=== PATIENT | female | born 1950 | race Caucasian/White ===

== ENCOUNTER 2017-02-11 17:50 | Emergency (ER) | payer OTHER ==
[~2017-02-11] VITALS: Ht 165.1 cm; Wt 73.9 kg
[~2017-02-11 17:50] MED LIST: DOXE50CA4 PO; GABA-531 PO; LABE200T28 PO; PRO40 PO; ROPI3TAB PO; TEMA30CA5 PO
[2017-02-11 17:55] VITALS: BP_SYST 155
[2017-02-11 19:08] LABS: BASOPHILS # (AUTO) 0.1 K/uL (0.0-0.2); BASOPHILS % (AUTO) 1.6 % (0.0-2.0); EOSINOPHILS # (AUTO) 0.2 K/uL (0.0-0.4); EOSINOPHILS % (AUTO) 2.7 % (0.0-4.0); HEMATOCRIT 37.2 % (36-48); HEMOGLOBIN 12.4 g/dL (12.0-16.0); LYMPHOCYTES # (AUTO) 2.5 K/uL (1.0-5.5); LYMPHOCYTES % (AUTO) 29.8 % (20.5-51.5); MEAN CORPUSCULAR HEMOGLOBIN 29 pg (27-31); MEAN CORPUSCULAR HGB CONC 34 % (32-36); MEAN CORPUSCULAR VOLUME 86 fL (79.0-98.0); MONOCYTES # (AUTO) 0.7 K/uL (0.0-1.0); NEUTROPHILS % (AUTO) 57.9 % (40.0-70.0); PLATELET COUNT (AUTO) 245 K/uL (130-430); RED BLOOD CELL COUNT(AUTO) 4.34 MIL/uL (4.2-6.2); RED CELL DISTRIBUTION WIDTH 13.5 % (9.0-15.0); WHITE BLOOD COUNT (AUTO) 8.5 K/uL (4.8-10.8)
[2017-02-11 19:11] LABS: CALCIUM 8.8 mg/dL (8.4-11.0); CREATININE 1.08 mg/dL (0.55-1.30); POTASSIUM 4.3 mmol/L (3.5-5.1)
[2017-02-11 19:16] LABS: PROTHROMBIN TIME 11.1 SECS (9.5-12.5)
[2017-02-11 20:00] VITALS: BP_SYST 163
[2017-02-11] MEDS ORDERED: NORMAL SALINE 5 ML DISP.SYRIN IVF SCH (22:00)
== END 2017-02-11 20:00 | disposition short-term general hospital (02) ==
LOC: SED 17:50
DX: R04.0 Epistaxis (principal); K74.60 Unspecified cirrhosis of liver; Z88.6 Allergy status to analgesic agent; Z87.442 Personal history of urinary calculi; Z86.19 Personal history of other infectious and parasitic diseases
CPT/HCPCS: 36415; 71010; 80048; 85025; 85610-TC; 85730-TC; 86870; 86886; 86900; 86901; 99285

== ENCOUNTER 2019-12-11 16:06 | Inpatient (IN) | payer OTHER ==
[~2019-12-11] VITALS: Ht 166.4 cm; Wt 81.6 kg
[~2019-12-11 16:06] MED LIST changes: +DOXE25CA3 PO; +DOXY100C PO; +HYDR-1189 PO; +IPRA4AER INH; +METH4TAB3 PO; +MONT10TA22 PO; +NIFE-2 PO; +PHEDM120 PO; +RANI-362 PO; +ROPI3TAB4 PO
[2019-12-11 16:15] VITALS: BP_SYST 140
--- NOTE | 2019-12-11 16:15 | NUR ---
Placed in room 2 . Placed on threat monitoring analyst, blood pressure machine and pulse oximeter. To gown for exam. Side rails up. Report given to ALIYAH Perez.
--- NOTE | 2019-12-11 16:17 | NUR ---
Patient arrived in the ED c/o shortness of breath and urinary retention. Patient was seen at [facility] 12/06/19 for the same symptom. Denied any chest pain. Denied any fevers, nausea, vomiting, or chills. Patient is alert and oriented x4, respirations even and unlabored, speaking in full sentences, ambulating with a steady gait. VSS, pain level 8/10. Informed of wait time. Instructed to notify ED staff for any changes in condition or worsening of symptoms. Patient verbalized understanding.
--- NOTE | 2019-12-11 16:34 | NUR ---
ECG done at bedside as ordered by Dr. Maria. Patient tolerated the procedure well. Report given to
--- NOTE | 2019-12-11 16:42 | NUR ---
ER Dr. Maria at bedside examining patient.
--- NOTE | 2019-12-11 16:52 | NUR ---
RT at bedside administering nebulizer treatment as ordered by Dr. Maria. Patient tolerated the medication well.
--- NOTE | 2019-12-11 16:55 | NUR ---
# 22 gauge angiocath placed to right chest. Use of asceptic technique. Opsite placed over site. Blood return noted. Blood for lab drawn from site. Flushed with 10 cc of normal saline. No evidence of infiltration noted. Patient tolerated well.
[2019-12-11] MEDS ORDERED: fentaNYL CITRATE/PF 100 MCG/2 ML AMP IVP ONE (17:00)
--- NOTE | 2019-12-11 17:00 | NUR ---
Administered Fentanyl IVP as ordered by Dr. Maria. Patient tolerated the medication well. See eMAR for details.
--- NOTE | 2019-12-11 17:03 | NUR ---
X-ray done at bedside as ordered by Dr. Maria. Patient tolerated the procedure well.
[2019-12-11] MEDS ORDERED: POTA-88 PO (17:06)
[2019-12-11] MEDS ORDERED: MACI10TA PO (17:06)
[2019-12-11] MEDS ORDERED: FAMO-132 PO (17:06)
[2019-12-11] MEDS ORDERED: BENZ-16 PO (17:06)
[2019-12-11] MEDS ORDERED: GUAI120L56 PO (17:06)
[2019-12-11] MEDS ORDERED: IPRA3AMP9 INH (17:06)
[2019-12-11] MEDS ORDERED: SILD20TA2 PO (17:06)
[2019-12-11] MEDS ORDERED: SPIR25TA6 PO (17:06)
[2019-12-11] MEDS ORDERED: ALBU8.5H8 INH (17:06)
[2019-12-11] MEDS ORDERED: FURO20TA4 PO (17:06)
--- NOTE | 2019-12-11 17:08 | NUR ---
Medication reconciliation completed with information provided by [facility]. Any prior medication reconciliation on file was reviewed and corrected.
[2019-12-11 17:29] LABS: BASOPHILS # (AUTO) 0.1 K/uL (0.0-0.2); BASOPHILS % (AUTO) 1.4 % (0.0-2.0); EOSINOPHILS # (AUTO) 0.1 K/uL (0.0-0.4); EOSINOPHILS % (AUTO) 1.4 % (0.0-4.0); HEMATOCRIT 33.1 % (36-48); HEMOGLOBIN 11.2 g/dL (12.0-16.0); LYMPHOCYTES # (AUTO) 0.3 K/uL (1.0-5.5); LYMPHOCYTES % (AUTO) 7.4 % (20.5-51.5); MEAN CORPUSCULAR HEMOGLOBIN 32 pg (27-31); MEAN CORPUSCULAR HGB CONC 34 % (32-36); MEAN CORPUSCULAR VOLUME 93 fL (79.0-98.0); MONOCYTES # (AUTO) 0.5 K/uL (0.0-1.0); MONOCYTES % (AUTO) 11.7 % (1.7-9.3); NEUTROPHILS # (AUTO) 3.5 K/uL (1.8-7.7); NEUTROPHILS % (AUTO) 78.1 % (40.0-70.0); PLATELET COUNT (AUTO) 95 K/uL (130-430); RED BLOOD CELL COUNT(AUTO) 3.55 MIL/uL (4.2-6.2); RED CELL DISTRIBUTION WIDTH 14.9 % (9.0-15.0); WHITE BLOOD COUNT (AUTO) 4.5 K/uL (4.8-10.8)
[2019-12-11 17:30] LABS: CREATININE 1.28 mg/dL (0.55-1.30)
[2019-12-11 17:35] LABS: ALBUMIN 3.8 g/dL (3.4-4.8)
[2019-12-11 18:16] LABS: INR 1.1 (0.8-1.2); PROTHROMBIN TIME 10.8 SECS (9.5-12.5)
[2019-12-11] MEDS ORDERED: ONDANSETRON HCL 4 MG/2 ML VIAL IVP ONE (18:45)
[2019-12-11] MEDS ORDERED: FUROSEMIDE 40 MG/4 ML VIAL IVP ONE (18:45)
[2019-12-11] MEDS ORDERED: MORPHINE 4 MG/ML INJ. SYRINGE IVP ONE (18:45)
--- NOTE | 2019-12-11 18:54 | NUR ---
Administered Zofran, Morphine and Lasix IVP as ordered by Dr. Maria. Patient tolerated the medication well. See eMAR for details.
[2019-12-11] MEDS ORDERED: methylPREDNISolone SOD SUCC/PF 62.5 MG/ML VIAL IVP ONE (19:00)
[2019-12-11] MEDS ORDERED: PIPERACILLIN/TAZO 3.375 GM in NS 50 ML IV ONE (19:00)
--- NOTE | 2019-12-11 19:00 | NUR ---
Received admitting orders from Dr. Rahman.
[2019-12-11] MEDS ORDERED: IPRATROPIUM/ALBUTEROL SULFATE 3 ML AMPUL.NEB (DUONEB) INH ONE (19:15)
--- NOTE | 2019-12-11 19:25 | NUR ---
Report given and care transferred to ALIYAH Sherman.
--- NOTE | 2019-12-11 20:48 | NUR ---
Patient will be admitted to care of Dr. Rahman. Admitted to Tele unit. Will go to room 121C. Belongings list completed. Complete and up to date summary report printed. SBAR report to be given at bedside with opportunity for questions.
--- NOTE | 2019-12-11 20:48 | NUR ---
ADMISSION: The patient, SISI ESQUIVEL, 69 y/o, F admitted by Dr Rahman , with [facility] diagnosis of acute respiratory distress to room 121 C ,family at bedside .
--- NOTE | 2019-12-11 20:48 | NUR ---
Transfer to Telemetry via ACLS protocol. Licensed nurse present. IV present no signs or symptoms of infiltration.
[2019-12-11 21:00] VITALS: BP_SYST 136
--- NOTE | 2019-12-11 21:10 | NUR ---
INITIAL NOTES PATIENT IS LAYING IN BED. RESPIRATORY RATE 24. SPO2 AT 92% PATIENT IS ON NASAL CANNULA AT 5L. PATIENT STATES THAT SHE WAS UNABLE TO URINATE. BLADDER SCAN SHOWS 818 CC OF URINE. WILL CALL MD FOR ORDERS.
--- NOTE | 2019-12-11 21:12 | NUR ---
Paged Dr. Rahman s/w Desirae
--- NOTE | 2019-12-11 21:13 | NUR ---
COMMUNICATED WITH DR. JULY NGUYEN ORDERS. ORDERS RECEIVED AND WILL FOLLOW THROUGH Addendum: 12/12/19 at 0452 by Dilshad Reeves RN VELÁZQUEZ CATHETER INSERTED AT THIS TIME.PATIENT TOLERATED WELL. Addendum: 12/12/19 at 0638 by Dilshad Reeves RN INITIAL OUTPUT WAS 720 CC THEN CLAMPED PER ORDERS. WILL UNCLAMP IN 45 MINS.
[2019-12-11] MEDS ORDERED: TEMAZEPAM 15 MG CAPSULE PO PRN (22:00)
[2019-12-11] MEDS ORDERED: BENZONATATE 100 MG CAPSULE (TESSALON) PO PRN (22:00)
--- NOTE | 2019-12-11 22:10 | NUR ---
PATIENT IS STABLE. NO S/S OF RESPIRATORY DISTRESS NOTED. PATIENT SUCCESSFULLY DEMONSTRATES USAGE OF CALL LIGHT AT THIS TIME. BED IS LOCKED, ALARMED, AND AT THE LOWEST POSITION. FALL, SAFETY, ASPIRATION, AND RESPIRATORY PRECAUTIONS WILL BE IN PLACE THROUGHOUT THE SHIFT. PLAN OF CARE IS DISCUSSED WITH PATIENT AT THIS TIME.
[2019-12-11] MEDS ORDERED: ACETAMINOPHEN 325 MG TABLET PO PRN (22:15)
[2019-12-11 22:24] LABS: BILIRUBIN,URINE NEGATIVE (NEGATIVE); BLOOD, URINE NEGATIVE (NEGATIVE); CLARITY/URINE CLEAR (CLEAR); COLOR,URINE YELLOW (YELLOW); GLUCOSE,URINE NEGATIVE (NEGATIVE); KETONES,URINE NEGATIVE (NEGATIVE); LEUKOCYTE ESTERASE ,URINE NEGATIVE (NEGATIVE); NITRITE, URINE NEGATIVE (NEGATIVE); PROTEIN URINE NEGATIVE (NEGATIVE); UROBILINOGEN,URINE 0.2 (0.2-1.0)
[2019-12-11] MEDS ORDERED: PIPERACILLIN/TAZOBACTAM 3.375 GM/VIAL (ZOSYN) IV ONE (22:30)
[2019-12-11] MEDS ORDERED: methylPREDNISolone SOD SUCC/PF 62.5 MG/ML VIAL ONE (22:31)
[2019-12-12] VITALS: BP_SYST 145; BP_SYST 146
--- NOTE | 2019-12-12 00:10 | NUR ---
PATIENT IS STABLE AND LAYING IN BED. NO S/S OF RESPIRATORY DISTRESS NOTED. CALL LIGHT IN REACH. BED IS LOCKED, ALARMED, AND AT THE LOWEST POSITION.
[2019-12-12] MEDS: IPRATROPIUM/ALBUTEROL SULFATE 3 ML AMPUL.NEB (DUONEB) INH SCH ×4 (01:08→19:45)
[2019-12-12 01:24] VITALS: BP_SYST 136
--- NOTE | 2019-12-12 02:10 | NUR ---
Consultation Paged Reason for Consultation: SOB, Recent Dx of PULM HTN BA Was consult called: Y Person who was notified: Darline Consulting Physician: Carolyn Jaramillo Electrical And Electronic Assembler Ordering Physician: Dr. Rahman
--- NOTE | 2019-12-12 02:10 | NUR ---
PATIENT IS STABLE AND SLEEPING IN BED. NO S/S OF RESPIRATORY DISTRESS NOTED. CALL LIGHT IN REACH. BED IS LOCKED, ALARMED, AND AT THE LOWEST POSITION.
[2019-12-12] MEDS ORDERED: ONDANSETRON HCL 4 MG/2 ML VIAL IM PRN (03:15)
[2019-12-12] MEDS ORDERED: MORPHINE 2 MG/ML INJ. SYRINGE IVP ONE (03:15)
--- NOTE | 2019-12-12 03:15 | NUR ---
COMMUNICATED WITH DR. MCDOWELL FOR MEDICATION. ORDERS RECEIVED. WILL FOLLOW THROUGH
--- NOTE | 2019-12-12 04:15 | NUR ---
PATIENT IS STABLE AND SLEEPING IN BED. NO S/S OF RESPIRATORY DISTRESS NOTED. CALL LIGHT IN REACH. BED IS LOCKED, ALARMED, AND AT THE LOWEST POSITION.
--- NOTE | 2019-12-12 06:30 | NUR ---
CLOSING NOTES PATIENT IS STABLE AND IN BED. NO S/S OF RESPIRATORY DISTRESS NOTED. CALL LIGHT IN REACH. BED IS LOCKED, ALARMED, AND AT THE LOWEST POSITION. FALL, SAFETY ASPIRATION, AND RESPIRATORY PRECAUTIONS HAS BEEN IN PLACE THROUGHOUT THE SHIFT. WILL CONTINUE TO MONITOR UNTIL REPORT IS GIVEN TO AM NURSE BY BEDSIDE.
[2019-12-12 07:09] LABS: BASOPHILS % (AUTO) 0.1 % (0.0-2.0); EOSINOPHILS % (AUTO) 0.2 % (0.0-4.0); HEMATOCRIT 31.1 % (36-48); HEMOGLOBIN 10.4 g/dL (12.0-16.0); LYMPHOCYTES # (AUTO) 0.2 K/uL (1.0-5.5); LYMPHOCYTES % (AUTO) 7.2 % (20.5-51.5); MEAN CORPUSCULAR HEMOGLOBIN 31 pg (27-31); MEAN CORPUSCULAR HGB CONC 34 % (32-36); MEAN CORPUSCULAR VOLUME 93 fL (79.0-98.0); MONOCYTES # (AUTO) 0.1 K/uL (0.0-1.0); NEUTROPHILS # (AUTO) 2.4 K/uL (1.8-7.7); NEUTROPHILS % (AUTO) 90.5 % (40.0-70.0); PLATELET COUNT (AUTO) 87 K/uL (130-430); RED BLOOD CELL COUNT(AUTO) 3.33 MIL/uL (4.2-6.2); RED CELL DISTRIBUTION WIDTH 14.8 % (9.0-15.0); WHITE BLOOD COUNT (AUTO) 2.7 K/uL (4.8-10.8)
[2019-12-12 08:00] VITALS: BP_SYST 123
--- NOTE | 2019-12-12 09:00 | NUR ---
Patient is stable and sitting on her bed. She ate most of her breakfast and voiced no complaints. She took her medications without difficulty. Her oxygen sat is at 96% which is acceptable. Sandy LY
--- NOTE | 2019-12-12 09:01 | NUR ---
Nutrition Update Jcarlos Scale 17 noted. Pt admitted for acute respiratory distress. Diet: 2 gm Na BMI: 29.5 kg/m2 RD to follow per nutrition care standards.
[2019-12-12] MEDS: NIFEDIPINE 30 MG TAB.ER.24 PO SCH (09:06)
[2019-12-12] MEDS: FAMOTIDINE 20 MG TABLET PO SCH (09:06)
[2019-12-12] MEDS: LABETALOL HCL 100 MG TABLET PO SCH ×2 (09:16→21:06)
[2019-12-12] MEDS: SPIRONOLACTONE 25 MG TABLET (ALDACTONE) PO SCH (09:17)
[2019-12-12] MEDS: SILDENAFIL CITRATE 20 MG TABLET PO SCH ×3 (09:25→21:06)
[2019-12-12] MEDS ORDERED: FUROSEMIDE 20 MG/2 ML VIAL IVP ONE (11:00)
[2019-12-12] MEDS ORDERED: FUROSEMIDE 20 MG/2 ML VIAL IVP SCH (11:00)
[2019-12-12] MEDS ORDERED: ENOXAPARIN SODIUM 40 MG/0.4 ML SYRINGE SUBCUT ONE (11:00)
--- NOTE | 2019-12-12 11:38 | NUR ---
Patient is in bed and eating food, came in for a consult and no new orders were given. She stated that she was at [place] last week, i requested all of the records for review. Sandy LY
[2019-12-12 12:54] VITALS: BP_SYST 118
[2019-12-12] MEDS: cefTRIAXone 1 GM in D5W 50 ML IV SCH (15:00)
--- NOTE | 2019-12-12 16:14 | NUR ---
Patient is stable and her is at her side. She voices no new concerns and vitals are stable. Her MRSA CULTURE is still pending at this time, will follow. Alyssa
[2019-12-12 16:15] VITALS: BP_SYST 114
--- NOTE | 2019-12-12 19:35 | NUR ---
ROUNDS PATIENT RESTING COMFORTABLY IN BED, VITALS STABLE, DENIES ANY PAIN AND DISCOMFORT AT THIS TIME. ASSESSMENT DONE AND DOCUMENTED. SEE FLOWSHEET. NEEDS ATTENDED TO. SAFETY AND FALL MEASURES IN PLACED. CALL LIGHT PLACED WITHIN REACH.
[2019-12-12 20:00] VITALS: BP_SYST 108
[2019-12-12] MEDS: HYDROcodone/ACETAMIN 5-325 MG TAB (NORCO/ VICODIN) PO PRN (21:03)
[2019-12-12] MEDS: FUROSEMIDE 20 MG/2 ML VIAL IVP SCH (21:05)
[2019-12-12] MEDS: DOXEPINE (SINEQUAN) 25 MG CAP PO SCH (21:06)
[2019-12-12] MEDS: MONTELUKAST 10 MG TABLET PO SCH (21:06)
--- NOTE | 2019-12-12 21:26 | NUR ---
PAGED PAGED DOCTOR MCDOWELL FOR ORDERS
[2019-12-12] MEDS ORDERED: TEMAZEPAM 15 MG CAPSULE PO ONE (22:00)
[2019-12-13] VITALS: BP_SYST 94
--- NOTE | 2019-12-13 00:13 | NUR ---
PATIENT RESTING: Patient resting quietly. No acute distress noted. Vital signs within normal range.
--- NOTE | 2019-12-13 04:13 | NUR ---
PATIENT RESTING: Patient resting quietly. No acute distress noted. Vital signs within normal range.
--- NOTE | 2019-12-13 04:15 | NUR ---
ROUNDS PATIENT ASLEEP, RESPIRATIONS EVEN AND UNLABORED, WILL CONTINUE TO MONITOR.
[2019-12-13 06:48] LABS: ALBUMIN 3.5 g/dL (3.4-4.8); BILIRUBIN,DIRECT 0.2 mg/dL (0.0-0.3); CALCIUM 8.3 mg/dL (8.4-11.0); CREATININE 2.34 mg/dL (0.55-1.30); POTASSIUM 4.7 mmol/L (3.5-5.1); TOTAL BILIRUBIN 0.6 mg/dL (0.0-1.0)
[2019-12-13 06:52] LABS: BASOPHILS % (AUTO) 0.1 % (0.0-2.0); EOSINOPHILS % (AUTO) 0.1 % (0.0-4.0); HEMATOCRIT 29.2 % (36-48); HEMOGLOBIN 9.7 g/dL (12.0-16.0); LYMPHOCYTES # (AUTO) 0.3 K/uL (1.0-5.5); MEAN CORPUSCULAR HEMOGLOBIN 31 pg (27-31); MEAN CORPUSCULAR HGB CONC 33 % (32-36); MEAN CORPUSCULAR VOLUME 94 fL (79.0-98.0); MONOCYTES # (AUTO) 0.5 K/uL (0.0-1.0); MONOCYTES % (AUTO) 10.4 % (1.7-9.3); NEUTROPHILS % (AUTO) 82.4 % (40.0-70.0); PLATELET COUNT (AUTO) 92 K/uL (130-430); RED CELL DISTRIBUTION WIDTH 15.1 % (9.0-15.0); WHITE BLOOD COUNT (AUTO) 4.9 K/uL (4.8-10.8)
[2019-12-13 07:57] LABS: THYROID STIMULATING HORMONE 2.35 uIu/mL (0.36-3.74)
[2019-12-13 08:00] VITALS: BP_SYST 106
--- NOTE | 2019-12-13 08:39 | NUR ---
Patients vitals were stable, her is bu her side. She is watching tv and voices no concerns. Her bed is low, locked and with side rails up. Patient was instructed to use the control by her bedside if she should need anything. Sandy LY
[2019-12-13] MEDS: FUROSEMIDE 20 MG/2 ML VIAL IVP SCH (08:58)
[2019-12-13] MEDS: FAMOTIDINE 20 MG TABLET PO SCH (08:59)
[2019-12-13] MEDS ORDERED: ENOXAPARIN SODIUM 40 MG/0.4 ML SYRINGE SUBCUT SCH (09:00)
[2019-12-13] MEDS: SILDENAFIL CITRATE 20 MG TABLET PO SCH ×3 (09:00→21:11)
[2019-12-13] MEDS: LABETALOL HCL 100 MG TABLET PO SCH ×2 (09:01→21:00)
[2019-12-13] MEDS: NIFEDIPINE 30 MG TAB.ER.24 PO SCH (09:01)
[2019-12-13] MEDS: SPIRONOLACTONE 25 MG TABLET (ALDACTONE) PO SCH (09:02)
--- NOTE | 2019-12-13 09:10 | NUR ---
Patient's vitals were stable, she refused her morning meds and stated she wanted to go home. Her daughter is at her bedside. We will continue to monitor patient. Sandy Addendum: 12/13/19 at 1738 by Marissa Colorado RN Wrong patient entry, please disregard. Sandy
--- NOTE | 2019-12-13 11:33 | NUR ---
CONSULTATION PAGED/CALLED Reason for Consultation: [] CHF, PULM HTN Person Who was Notified: [] JACKELYN Consulting Physician: [] DR SAL Brass Sorter Specialty: [] CARDIO Ordering Physician: [] DR MCDOWELL
--- NOTE | 2019-12-13 12:45 | NUR ---
Patient is stable and eating her meal tray, she voices not concerns. Her bed is locked and low with the remote within reach. Sandy LY
--- NOTE | 2019-12-13 13:45 | NUR ---
Patient was uncooperative and wanted to leave AMA, was called and ordered haldol, diphenhydramine and ativan. Patient cooperated with injection. Patient is back in her bed sleeping. Daughter was called to give her an update of her mothers well-being. Sandy Addendum: 12/13/19 at 1738 by Marissa Colorado RN Please disregard, entry was on wrong patient.
[2019-12-13] MEDS: IPRATROPIUM/ALBUTEROL SULFATE 3 ML AMPUL.NEB (DUONEB) INH SCH ×2 (13:57)
[2019-12-13] MEDS: cefTRIAXone 1 GM in D5W 50 ML IV SCH (15:05)
[2019-12-13 16:24] VITALS: BP_SYST 110
[2019-12-13] MEDS: HYDROcodone/ACETAMIN 5-325 MG TAB (NORCO/ VICODIN) PO PRN (16:47)
--- NOTE | 2019-12-13 17:57 | NUR ---
Patient is a stable but with a little bit of pain, gave her pain meds. Her is by her side. Her bed is low, locked, 2 side rails up and call light within reach. Sandy LY
[2019-12-13 20:00] VITALS: BP_SYST 105
[2019-12-13] MEDS: DOXEPINE (SINEQUAN) 25 MG CAP PO SCH (21:11)
[2019-12-13] MEDS: guaiFENesin 200 MG/CODEINE 20 MG/ 10 ML UDC PO PRN (21:11)
[2019-12-13] MEDS: MONTELUKAST 10 MG TABLET PO SCH (21:11)
--- NOTE | 2019-12-13 23:22 | NUR ---
hannah called that the patient home medication needs to be taken today as she has not been takiong it for the third day toalvin, boyd will give the dose today
[2019-12-13] MEDS ORDERED: OPSUMIT 10 MG PO ONE (23:30)
[2019-12-13] MEDS: OPSUMIT 10 MG PO SCH (23:33)
[2019-12-14] MEDS: IPRATROPIUM/ALBUTEROL SULFATE 3 ML AMPUL.NEB (DUONEB) INH SCH ×5 (01:57→20:32)
[2019-12-14 02:10] VITALS: BP_SYST 105
[2019-12-14 06:29] LABS: CALCIUM 8.1 mg/dL (8.4-11.0); CREATININE 1.89 mg/dL (0.55-1.30); POTASSIUM 4.7 mmol/L (3.5-5.1)
[2019-12-14 08:00] VITALS: BP_SYST 122
--- NOTE | 2019-12-14 08:00 | NUR ---
NOTE Pt sitting up in bed eating her breakfast. No SOB/resp distress or pain/discomfort noted at this time. Pt has O2 at 2L/nc at this time. Tele unit attached and intact at this time. Pt has IV in right AC and right chest wall, which are patent and intact at this time. No needs noted at this time. Call light within reach.
[2019-12-14] MEDS: SPIRONOLACTONE 25 MG TABLET (ALDACTONE) PO SCH (09:17)
[2019-12-14] MEDS: NIFEDIPINE 30 MG TAB.ER.24 PO SCH (09:18)
[2019-12-14] MEDS: HYDROcodone/ACETAMIN 5-325 MG TAB (NORCO/ VICODIN) PO PRN ×2 (09:18→20:22)
[2019-12-14] MEDS: SILDENAFIL CITRATE 20 MG TABLET PO SCH ×3 (09:18→20:21)
[2019-12-14] MEDS: FAMOTIDINE 20 MG TABLET PO SCH (09:18)
[2019-12-14] MEDS: LABETALOL HCL 100 MG TABLET PO SCH ×2 (09:19→20:23)
[2019-12-14] MEDS: guaiFENesin 200 MG/CODEINE 20 MG/ 10 ML UDC PO PRN (09:22)
--- NOTE | 2019-12-14 11:00 | NUR ---
Note Pt requested and received Robitussin and Savannah at 0930am. Pt now has decreased pain and less coughing. Pt receives her breathing treatments as scheduled and requested PRN all shift. Pt denies any needs at this time. Call light within reach. O2 at 2L/nc still intact and attached. Call light within reach.
[2019-12-14 12:25] VITALS: BP_SYST 98
[2019-12-14] MEDS: cefTRIAXone 1 GM in D5W 50 ML IV SCH (13:35)
--- NOTE | 2019-12-14 13:50 | NUR ---
Note Pt coughing up Phleum - thin and white. Pt's at bedside the last 2 hours. No needs noted at this time. Call light within reach.
--- NOTE | 2019-12-14 15:25 | NUR ---
Note Pt resting in bed with O2 on at 2L/nc. Denies any needs at this time. Pt's Mina catheter intact and draining well all shift. Call light within reach.
[2019-12-14 16:31] VITALS: BP_SYST 103
[2019-12-14] MEDS: OPSUMIT 10 MG PO SCH (17:14)
--- NOTE | 2019-12-14 18:25 | NUR ---
Note Pt sitting up in bed eating her dinner with O2 on at 2L/nc. No SOB/resp distress or pain/discomfort noted at this time. IV in right AC and right chest wall intact and patent. Pt was checked on q1' and PRN all shift for needs and care. Tele unit attached and intact all shift. No needs noted at this time. Call light within reach.
[2019-12-14 20:00] VITALS: BP_SYST 127
[2019-12-14] MEDS: MONTELUKAST 10 MG TABLET PO SCH (20:21)
[2019-12-14] MEDS: DOXEPINE (SINEQUAN) 25 MG CAP PO SCH (20:22)
[2019-12-15] VITALS (7 sets, daily range): BP systolic 101–124
[2019-12-15] MEDS: IPRATROPIUM/ALBUTEROL SULFATE 3 ML AMPUL.NEB (DUONEB) INH SCH ×4 (01:23→19:46)
[2019-12-15] MEDS: guaiFENesin 200 MG/CODEINE 20 MG/ 10 ML UDC PO PRN ×2 (05:34→16:58)
[2019-12-15] MEDS: HYDROcodone/ACETAMIN 5-325 MG TAB (NORCO/ VICODIN) PO PRN (05:34)
[2019-12-15 07:47] LABS: CALCIUM 8.4 mg/dL (8.4-11.0); CREATININE 1.19 mg/dL (0.55-1.30); POTASSIUM 4.6 mmol/L (3.5-5.1)
--- NOTE | 2019-12-15 08:00 | NUR ---
Note Pt assisted in sitting up in bed to eat breakfast. Pt has O2 on at 2L/nc. No SOB/resp distress or pain/discomfort noted at this time. Tele unit attached and intact. IV in right AC intact and patent. No needs noted at this time. Call light within reach.
[2019-12-15] MEDS: NIFEDIPINE 30 MG TAB.ER.24 PO SCH (08:50)
[2019-12-15] MEDS: LABETALOL HCL 100 MG TABLET PO SCH ×2 (08:50→20:59)
[2019-12-15] MEDS: SILDENAFIL CITRATE 20 MG TABLET PO SCH ×3 (08:50→20:58)
[2019-12-15] MEDS: FAMOTIDINE 20 MG TABLET PO SCH (08:50)
[2019-12-15] MEDS: SPIRONOLACTONE 25 MG TABLET (ALDACTONE) PO SCH (08:51)
--- NOTE | 2019-12-15 12:25 | NUR ---
Note Pt was assisted with partial bed bath by [facility] nursing home aide. Pt denies any needs at this time. Call light within reach. Pt assisted in sitting up in bed to eat lunch.
[2019-12-15] MEDS: cefTRIAXone 1 GM in D5W 50 ML IV SCH (13:49)
--- NOTE | 2019-12-15 15:05 | NUR ---
Note Pt resting in bed with at bedside at this time. Dr Rahman at bedside assessing pt and answering questions/concerns at this time. No needs noted at this time. Call light within reach. Right AC IV intact and patent at this time.
[2019-12-15] MEDS ORDERED: FUROSEMIDE 20 MG/2 ML VIAL IVP ONE (15:45)
[2019-12-15] MEDS: OPSUMIT 10 MG PO SCH (16:53)
--- NOTE | 2019-12-15 17:50 | NUR ---
NOTE Pt ambulating with Dinesh (PT therapist) in the hallway with O2 at 2L/nc and FWW, pt also has Mina catheter..
--- NOTE | 2019-12-15 18:20 | NUR ---
Note Pt denies any SOB/resp distress or pain/discomfort at this time. Pt has her O2 at 2L/nc. IV in right AC intact and patent. Tele unit attached and intact all shift. Mina catheter intact and draining. Pt was checked on q1' and PRN all shift for needs and care. No needs noted at this time. Call light within reach.
--- NOTE | 2019-12-15 20:23 | NUR ---
received alert tenzin garcia and with hard non preductive cpught, breathing treatment rendered but saturation 88%. will call Dr Maciel .
[2019-12-15] MEDS: DOXEPINE (SINEQUAN) 25 MG CAP PO SCH (20:59)
[2019-12-15] MEDS: MONTELUKAST 10 MG TABLET PO SCH (20:59)
[2019-12-16] MEDS: IPRATROPIUM/ALBUTEROL SULFATE 3 ML AMPUL.NEB (DUONEB) INH SCH ×4 (01:30→19:28)
[2019-12-16 02:06] VITALS: BP_SYST 112
[2019-12-16 04:00] VITALS: BP_SYST 109
[2019-12-16] MEDS: guaiFENesin 200 MG/CODEINE 20 MG/ 10 ML UDC PO PRN (06:15)
[2019-12-16 06:37] LABS: CALCIUM 8.5 mg/dL (8.4-11.0); CREATININE 1.09 mg/dL (0.55-1.30); POTASSIUM 4.3 mmol/L (3.5-5.1)
--- NOTE | 2019-12-16 07:55 | NUR ---
INITIAL NOTE RECEIVED PT IN BED, NO S/S OF DISTRESS OR SOB NOTED, PT HAS NO C/O PAIN AT THIS TIME, PT IN STABLE CONDITION, PT AAOX4 VERBAL. IV CATHETERS PATENT, NO SIGNS OF INFECTION OR INFILTRATION NOTED, SALINE LOCK. PT ON OXYGEN 2 LITERS VIA NASAL CANNULA, SATURATION OF 93%. F/C DRAINING VIA GRAVITY. FALL AND SAFETY PRECAUTIONS IN PLACE. BED AT LOWEST POSITION, CALL LIGHT WITHIN REACH, WILL CONTINUE TO MONITOR PT FOR ANY CHANGES.
[2019-12-16 08:30] VITALS: BP_SYST 113
[2019-12-16] MEDS: FAMOTIDINE 20 MG TABLET PO SCH (09:05)
[2019-12-16] MEDS: SILDENAFIL CITRATE 20 MG TABLET PO SCH ×3 (09:05→20:59)
[2019-12-16] MEDS: NIFEDIPINE 30 MG TAB.ER.24 PO SCH (09:05)
[2019-12-16] MEDS: SPIRONOLACTONE 25 MG TABLET (ALDACTONE) PO SCH (09:06)
[2019-12-16] MEDS: LABETALOL HCL 100 MG TABLET PO SCH ×2 (10:31→21:00)
--- NOTE | 2019-12-16 10:39 | NUR ---
ROUNDS PT IN BED, NO S/S OF DISTRESS OR SOB NOTED, PT HAS NO C/O PAIN AT THIS TIME, PT IN STABLE CONDITION, PT HELPED TO AMBULATE TO RESTROOM, HYGIENE PROVIDED, PT HAD A BM. BED AT LOWEST POSITION, CALL LIGHT WITHIN REACH, WILL CONTINUE TO MONITOR PT FOR ANY CHANGES. Addendum: 12/16/19 at 1650 by Jocelin Blevins RN AFTER AMBULATION PT SATURATION WAS 88%
[2019-12-16 12:22] VITALS: BP_SYST 115
--- NOTE | 2019-12-16 12:22 | NUR ---
ROUNDS PT IN BED ON HER LAPTOP, NO S/S OF DISTRESS OR SOB NOTED, PT HAS NO C/O PAIN AT THIS TIME, PT IN STABLE CONDITION. BED AT LOWEST POSITION, CALL LIGHT WITHIN REACH, WILL CONTINUE TO MONITOR PT FOR ANY CHANGES.
--- NOTE | 2019-12-16 12:53 | NUR ---
Dietitian Recommendations *Recommend: 2gm Na diet w/ Ensure Enlive BID. ONS will provide additional 700 kcal and 40gm protein daily. *Encourage pt to increase PO intake. *Consider Megace to stimulate appetite. Please see Nutritional Assessment for details. MARIO TEJADA
--- NOTE | 2019-12-16 12:54 | NUR ---
Request transfer to [facility] by Dr. Morgan to Higher Level of Care. I spoke to David Schmitt to recived direction on and authorization of transfer for Yudith Shaw in room 129-A Telemetry. I also spoke with Mitra at the Transfer Center([phone]) in [facility] and informed to make sure to fax, Face sheet, HP, today's progress notes, special reports, all imaging reports and cardiac echo. Pt to be admitted under Dr. Chopra ([phone]). All information faxed at requested on 12-16-2019 at 1226 PM (fax#[phone]). Also informed Uma ANTONIO, of Transfer Back Agreement document. Transfer Back Agreement signed as indicated and fax. At this time we are waiting for a response from [facility].
[2019-12-16] MEDS: cefTRIAXone 1 GM in D5W 50 ML IV SCH (13:49)
--- NOTE | 2019-12-16 14:39 | NUR ---
MD CALL DR ARCE CALLED AND SPOKE WITH PT, PER GAVE NEW ORDERS FOR LASIX 40 IVP X1, TO STOP PATIENT'S OWN MED OF OPSUMIT. PER NOT TO TRANSFER PT TODAY TO [facility] CHARGE NURSE MADE AWARE.
[2019-12-16] MEDS ORDERED: FUROSEMIDE 40 MG/4 ML VIAL IVP ONE (14:45)
--- NOTE | 2019-12-16 15:04 | NUR ---
CALL PAGED DR ARCE TO CLARIFY PLAN FOR TOMORROW IF PT WILL BE TRANSFERRED OR NOT BECAUSE WANTS TO KNOW. Addendum: 12/16/19 at 1506 by Jocelin Blevins RN PER PT IS CLEARED TO BE D/C HOME AND CAN GO TO HER APPT TOMORROW IF SHE IS CLEARED BY DR MCDOWELL
--- NOTE | 2019-12-16 15:40 | NUR ---
MD CALL DR JULY THOMPSON, PER DR ARCE TO HOLD TRANSFER OF PT TO [facility], PT CAN GO HOME ON OXYGEN AND GO TO HER APPT TOMORROW IF CLEARED BY DR MCDOWELL. AWAITING CALL BACK TO LET DR MCDOWELL KNOW. Addendum: 12/16/19 at 1649 by Jocelin Blevins RN SPOKE WITH DR MCDOWELL AND PER HER PT WILL BE D/C HOME TOMORROW MORNING FOR HER APPT ON OXYGEN. MADE AWARE THAT WHEN PT WALKED IN AM AFTER GOING RESTROOM, SATURATION WAS 88% AND ON 2 LITERS SATURATION ALL DAY HAS BEEN 93%.
[2019-12-16 16:01] VITALS: BP_SYST 121
--- NOTE | 2019-12-16 16:52 | NUR ---
ROUNDS PT IN BED ON HER LAPTOP AND TALKING TO AT BEDSIDE, NO S/S OF DISTRESS OR SOB NOTED, PT HAS NO C/O PAIN AT THIS TIME, PT IN STABLE CONDITION. BED AT LOWEST POSITION, CALL LIGHT WITHIN REACH, WILL CONTINUE TO MONITOR PT FOR ANY CHANGES.
--- NOTE | 2019-12-16 17:23 | NUR ---
MD OCONNOR SPOKE WITH DR MCDOWELL, PER PT CAN BE D/C HOME TODAY SO SHE CAN GO TO HER APPT TOMORROW AT [facility], PER PT NEEDS TO HAVE OXYGEN ON AT ALL TIMES, SHE SPOKE WITH DR ARCE AND BOTH AGREED TO D/C PT HOME. F/C WILL BE D/C AND PT NEEDS TO VOID BEFORE D/C EVEN IF IT IS JUST A LITTLE BIT. SPOKE WITH OF PT AND MADE HIM AWARE OF POC, I SPOKE WITH AND MADE HIM AWARE OF THE POC AND DISCHARGE PLAN WELL. IS CONCERNED ABOUT HER DE SATURATION BUT MADE HIM AWARE THAT PT NEEDS OXYGEN ON AT ALL TIMES. CHARGE NURSE MADE AWARE. Addendum: 12/16/19 at 1747 by Jocelin Blevins RN SPOKE WITH DR MCDOWELL PER IF WANTS TO CONTEST D/C HE CAN, THERE IS NO PRESSURE FOR THEM TO BE D/C BUT THEY DON'T WANT TO MISS APPT TOMORROW, PT TO CONTINUE TAKING LASIX PO AND MAINTAIN BEDREST STRICT, NO ACTIVITY.
--- NOTE | 2019-12-16 17:40 | NUR ---
F/C D/C D/C VELÁZQUEZ CATHETER, CATHETER INTACT, NO ACTIVE BLEEDING NOTED, EDUCATED PT TO LET NURSE KNOW WHEN SHE VOIDS, BLADDER NON DISTENDED. WILL CONTINUE TO MONITOR FOR ANY CHANGES.
--- NOTE | 2019-12-16 18:27 | NUR ---
MD OCONNOR SPOKE WITH DR MCDOWELL IN REGARDS TO D/C, PER PT WILL BE GOING TONIGHT. PER DR MCDOWELL NO NEED TO WAIT FOR PT TO VOID.
--- NOTE | 2019-12-16 18:30 | NUR ---
CLOSING NOTE PT IN BED, NO S/S OF DISTRESS OR SOB NOTED, PT HAS NO C/O PAIN AT THIS TIME, PT IN STABLE CONDITION, PT AAOX4 VERBAL. IV CATHETERS PATENT, NO SIGNS OF INFECTION OR INFILTRATION NOTED, SALINE LOCK. PT ON OXYGEN 2 LITERS VIA NASAL CANNULA, SATURATION OF 93%. FALL AND SAFETY PRECAUTIONS IN PLACE. BED AT LOWEST POSITION, CALL LIGHT WITHIN REACH, WILL ENDORSE CARE OF PT TO INCOMING NURSE. AWAITING D/C HOME.
--- NOTE | 2019-12-16 19:07 | NUR ---
RECEIVED WITH ORDERS FOR DISCHARGE,VELÁZQUEZ CATHETER DISCONTINUED AND NOT VOIDED YET, ALERT AND ORIENTED,
--- NOTE | 2019-12-16 19:45 | NUR ---
VITAL SIGNS CHECKED AND PATIENT AND FAMILY WANT TO GO EVEN IF THE PATIENT DID NOT VOID, CHARGE NURSE ORDERED FOR THE PATIENT TO BE DISCAHRGE AFTER VOIDING BUT THE PATIENT INSIST THEY CAN GO EVEN WHEN THE PATIENT DID NOT VOID, WILL CALL DR MCDOWELL ABOUT IT, PATIENT IS AWARE
--- NOTE | 2019-12-16 19:53 | NUR ---
PAGED I PAGED DR. MCDOWELL @ 1952 I SPOKE WITH HEIKE MCDOWELL CALLED BACK @ 1954
--- NOTE | 2019-12-16 19:59 | NUR ---
DR MCDOWELL CALLED BACK ANDORDERED 2 OPTIONS .PATIENT CAN GO HOME WITHOUT VOIDING AND COME BACK TO THE EMERGENCY ROOM IF CANNOT VOID OR STAY TILL MORNING.RUBIA CHOSE TO GO HOME EVEN WITHOUT VOIDING AND WILL COME BACK TO THE ER IF NOT VOIDED,
--- NOTE | 2019-12-16 20:06 | NUR ---
PATIENT CHOOSE TO GO HOME EVEN IF NOT VOIDED AND COME BACK TO THE ER IF UNABLE TO VOID , DID NOT CHOOSE TO STAY TILL VOIDED, WILL STAR THE DISCHARGE PROCESS, CHARGE NURSE IS AWARE/
[2019-12-16 20:20] VITALS: BP_SYST 122
--- NOTE | 2019-12-16 20:53 | NUR ---
IV CANNULA TO THE RIGHT UPPER CHEST DISCONTINUED AND RIGHT FOREARM. CLEANED WITH ALCOHOL AND DRESSING APPLIED. DISCHARGE INSTRCUTIONS GIVEN BU=Y THE CHARGE NURSE AMD WITH THE FAMILY AND EXPRESS UNDERSTANDING.
[2019-12-16] MEDS: MONTELUKAST 10 MG TABLET PO SCH (20:59)
[2019-12-16] MEDS: DOXEPINE (SINEQUAN) 25 MG CAP PO SCH (20:59)
--- NOTE | 2019-12-16 21:30 | NUR ---
DISCHARGE PER WHEELCHAIR ALERT AND ORIENTED WITH O2 AT 2LITERS TO THE PATIENT CAR, WITH FAMILY WITH PATIENT NOT VOIDED YET BUT PATIENT AND FAMILY IS AWARE THAT ID SHE DID NOT VOID WITH 8 HIOURS THAT SHE NEEDS TO GO BACK TO THE EMERGENCY ROOM AND PER PATIENT CHOICE.DR MCDOWELL IS AWARE .DISCHRGE IN PATIENT OWN PRIVATE CAR AND HAS OXYGEN IN THE CAR AND HAS OXYGEN HOME O2 AT HOME AND IS AWARE OF HOW TO USE IT, HAS AN APPOINTMENT IN AM AND IS AWARE AND WILL GO TO THE APPOINTMENT PER CINDIUE,
--- NOTE | 2019-12-18 15:45 | NUR ---
Discharge Follow Up Phone Call Phoned patient, , and left a voicemail message with offer of assistance and Social Service contact information.
== END 2019-12-16 21:15 | disposition home or self-care (01) | DRG 682 ==
LOC: SED 16:06 → STU 19:09
PROVIDERS: ADMIT Internal Medicine; ATTEND Internal Medicine
DX: N17.0 Acute kidney failure with tubular necrosis (principal); I50.33 Acute on chronic diastolic (congestive) heart failure; J96.91 Respiratory failure, unspecified with hypoxia; J44.1 Chronic obstructive pulmonary disease with (acute) exacerbation; I11.0 Hypertensive heart disease with heart failure; I27.20 Pulmonary hypertension, unspecified; D69.6 Thrombocytopenia, unspecified; K74.60 Unspecified cirrhosis of liver; G25.81 Restless legs syndrome; B19.20 Unspecified viral hepatitis C without hepatic coma; Z85.05 Personal history of malignant neoplasm of liver; Z90.710 Acquired absence of both cervix and uterus; Z90.13 Acquired absence of bilateral breasts and nipples; Z90.49 Acquired absence of other specified parts of digestive tract; Z79.899 Other long term (current) drug therapy; Z88.6 Allergy status to analgesic agent; Z87.01 Personal history of pneumonia (recurrent); Z87.442 Personal history of urinary calculi
CPT/HCPCS: 36415; 36600; 71045; 71250-TC; 76770; 80048; 80053; 80076; 81003; 82550-TC; 82803-TC; 83605; 83735-TC; 83880; 84443-TC; 84484; 85025; 85379; 85610-TC; 85730-TC; 86710; 87040-TC; 87081; 87086; 93005; 93306; 94640; 94760; 96365; 96375; 99291; G0378; J0696; J1650; J1940; J2270; J2405; J2543; J2930; J3010; J7060